=== PATIENT | female | born 1975 | race Asian ===

== ENCOUNTER 2024-10-06 08:38 | Inpatient (IN) | payer MEDICAID ==
[~2024-10-06] VITALS: Ht 149.9 cm; Wt 74.0 kg
--- NOTE | 2024-10-06 08:57 | ELECTROCARDIOGRAPH REPORT ---
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
[2024-10-06 09:32] LABS: MEAN PLATELET VOLUME 7.3 FL (7.4-10.4); RED CELL DISTRIBUTION WIDTH 14.0 % (11.5-14.5)
--- NOTE | 2024-10-06 09:34 | RADIOLOGY REPORT ---
EXAM: DI CHEST,SINGLE VIEW HISTORY: CP COMPARISON: None TECHNIQUE: Portable AP view of the chest was performed. FINDINGS: No pneumothorax, consolidative infiltrates, or pulmonary edema. The heart is borderline enlarged. IMPRESSION: No acute intrathoracic process.
[2024-10-06 09:53] LABS: CREATININE 0.52 MG/DL (0.40-0.90); PRO BRAIN NATRIURETIC PEPTIDE 152 PG/ML (0-125); TOTAL CARBON DIOXIDE 25.6 MMOL/L (24-32); eCRCL 89 ML/MIN; eGFR > 90 ML/MIN
--- NOTE | 2024-10-06 10:34 | Physician Documentation ---
History of Present Illness ~ Chief Complaint: Hypertension Stated Complaint: HYPOTENSIVE Time Seen by MD: 08:51 Mode of Arrival: EMS HPI This is a 49-year-old female with known history of hypotension, transferred to us for evaluation of hypotensive emergency/crisis. Evidently she lives in [place], she went to the outside facility because she developed chest tightness starting 3:00 p.m.. Chest tightness and pain started at rest, accompanied by shortness a breath radiating to her left upper extremity. No diaphoresis. At the time of my examination she is symptom free. She has a markedly elevated blood pressure at the outside facility of 257/134 periods of the slightly tachycardic. Per record review she received aspirin at the outside facility. Chest pressure was relieved with sublingual nitro. Apparently every time I her blood pressure was rising she would experience chest pain/pressure. Medication Reconciliation Allergies: Coded Allergies: No Known Allergies (Unverified , 10/06/24) Review of Systems ROS 10 point review of systems was performed and unless noted above in HPI is negative for acute process/complaint. Physical Exam Vital Signs: Temperature: 97.8, Source: Oral, Heart Rate: 55, Respiratory Rate: 11, BP: 166/73, Pulse Oximetry: 99, Weight: 74.000 Oxygen Flow Rate: 0 Physical Exam GENERAL: Awake, alert, oriented, GCS 15, no apparent distress, non-toxic appearing, answers questions, follows commands appropriately. HEENT: Atraumatic, normocephalic, pupils equal, extraocular muscles intact, sclerae anicteric, mucus membranes moist, oropharynx is clear, no stridor. NECK: supple, full active range of motion, trachea midline, no thyromegaly, no lymphadenopathy, no JVD. CARDIOVASCULAR: regular rate/rhythm, no murmurs/gallops/rubs, Pulses are 2+ in all extremities and symmetric. Capillary refill less than 2 seconds. PULMONARY: Nonlabored, good air movement ,no respiratory distress, speaking in full sentences, clear to auscultation bilaterally, no wheezing, no ronchi, no rales, no accessory muscle use. GASTROINTESTINAL: Soft, non-tender, non-distended, normal active bowel sounds, no organomegaly, no pulsatile masses, no CVA tenderness. NEUROLOGIC: Lucid with normal mental status. Normal facial symmetry. Moves all extremities symmetrically and with purpose. No truncal ataxia. Speech is fluid without evidence of dysarthria or aphasia, no focal deficits appreciated. MUSCULOSKELETAL: There is full range of motion of all extremities. There is no joint pain or joint swelling or joint erythema. There is no muscle pain or tenderness or swelling. EXTREMITIES: warm, well-perfused, no cyanosis, no clubbing, no edema, no acute deformities. Skin: warm, dry, no rashes or lesions, no jaundice, no petechiae orpurpura. No ecchymosis. PSYCHIATRIC: Normal affect, normal insight, normal concentration. Focused exam: [] Progress Results/Orders Results/Orders Orders - LORNA GARCIA DO Chest,Single View (10/06/24 08:41) Monitor (10/06/24 08:41) Saline Lock (10/06/24 08:41) Oxygen (10/06/24 08:41) Hs Troponin I W Calculations (10/06/24 10:41) Hs Troponin I W Calculations (10/06/24 11:41) Completed Orders - LORNA GARCIA DO Chest,Single View (10/06/24 08:41) Cbc/Diff (10/06/24 08:41) BMP (10/06/24 08:41) PBNP (10/06/24 08:41) Electrocardiogram (10/06/24 08:41) Hs Troponin I W Calculations (10/06/24 08:41) Vital Signs 10/06/24 10/06/24 08:43 10:03 Temp 97.8 Pulse 55 Resp 14 11 B/P (MAP) 166/73 Pulse Ox 99 O2 Flow Rate 0 Laboratory Tests Test 10/06/24 09:10 White Blood Count 5.3 Red Blood Count 4.56 Hemoglobin 12.4 Hematocrit 37.5 Mean Corpuscular Volume 82.2 Mean Corpuscular Hemoglobin 27.1 Mean Corpuscular Hemoglobin Concent 33.0 Red Cell Distribution Width 14.0 Platelet Count 194 Mean Platelet Volume 7.3 L Neutrophils (%) (Auto) 55.4 Lymphocytes (%) (Auto) 37.1 Monocytes (%) (Auto) 7.0 Eosinophils (%) (Auto) 0.2 Basophils (%) (Auto) 0.3 Neutrophils # (Auto) 2.9 Lymphocytes # (Auto) 2.0 Monocytes # (Auto) 0.4 Eosinophils # (Auto) 0.0 Basophils # (Auto) 0.0 CBC Comment Sodium Level 140 Potassium Level 3.6 Chloride Level 109 H Carbon Dioxide Level 25.6 Anion Gap 5 L Blood Urea Nitrogen 6 L Creatinine 0.52 Estimated GFR/1.73 m2 > 90 BUN/Creatinine Ratio 11.5 Glucose Level 96 Calcium Level 7.8 L Troponin I High Sensitivity 20 Pro-B-Type Natriuretic Peptide 152 H Albumin 3.2 L Chemistry Comments EKG/XRAY/CT/US/VASC/MRI EKG : Additional Comment EKG was obtained and interpreted by myself shows sinus bradycardia, rate of 54, normal CO interval, narrow QRS, prolonged QT at 5:10 a.m., normal axis, no STEMI. Nonspecific T-wave changes. Medical Decision Making Findings Facility Status: ED Holds, [facility] process The plan was discussed with the patient, who demonstrates clear understanding of the plan and is in agreement with the plan unless otherwise noted in the chart. All questions have been answered, all concerns were addressed unless otherwise documented. I was available throughout their ED stay for frequent reassessment and questions. Differential Diagnoses (considered and possible or likely): [Differential diagnosis considered includes hypertensive crisis, chest wall pain, pleurisy, pneumonia, pulmonary embolus, GERD, esophagitis, gastritis, anxiety, stress reaction, costochondritis, acute coronary syndrome, aortic dissection, pericarditis, myocarditis, or pneumothorax.] ??Differential Diagnoses (considered and unlikely, not requiring evaluation currently): [Aortic/great vessels dissection was considered but it is unlikely based on absence of ripping, tearing, migratory chest pain, absence of syncope or focal neurologic deficits, physical examination indicating equal and symmetric pulses.] MDM Data Please see [facility] for the following: Independent Historians and external Records Review. Historian: [Patient] Independent Historians: ?[Record review] Medication Management: [Reviewed medication list] Social History and determinants: [Reviewed] Please see the body of the note for the following: Any independent interpretations of ECG, imaging studies. All vitals signs/haemodynamics, ordered tests were independently reviewed and interpreted by myself. Nursing triage complaint and vitals reviewed, additional nursing notes were reviewed as available and I agree unless otherwise noted or documented in contradiction in the chart Vital Signs: Independently reviewed Labs: Independently interpreted Imaging: Independently interpreted Old Medical Records: Independently reviewed, see [facility] for relevant summary and information Pulse Oximetry: [97%] interpreted as [normal on room air] by me [[employer] Reporter: Bradycardic Rate, Regular rhythm, no ectopy, sinus bradycardia. reviewed and interpreted by me] Additionally notably showing: [Hemodynamics reviewed. The patient is not febrile, not tachycardic, no evidence of hypotension respiratory distress. CBC normal. Metabolic panel is essentially unremarkable. BNP slightly elevated. Troponin is normal. Chest x-ray shows no acute disease.] Tests considered but not ordered include: [Stress test and echo can be done on an inpatient basis] Social Determinants of Health Impact: Patient was evaluated in [facility] [place] access to healthcare due to below par ratio of patient to medical providers. [] Comorbid Conditions Impacting Present Evaluation and Care/Treatment: [Hypertension, untreated] Management Discussions with other Healthcare Providers: [Hospitalist regarding admission] Treatment and Disposition Medication Management (Given or considered): []. See EMR for details Consideration for Hospitalization/Escalation/Deescalation of Care: Admission for observation has been considered, for further workup of her chest pain that improves with the nitroglycerin and returns for hypotension ?ED Course:?[No clinical deterioration here in the ED] ?Shared decision making:?[] Code status:?FULL Please see the full Electronic Medical Record for full details of nursing documentation, medications list, other records of complete past medical history and conditions, vital signs, laboratory studies, and any radiologic study interpretations by radiologists. Portions of this note were completed using shoply dictation software and as a result there may exist minor errors in spelling. I have reviewed elements of past family and social history and agree as included in note. Departure Disposition: 09 ADMITTED INPATIENT Admitted to Inpatient Unit: to hospitalist Impression: Primary Impression: Hypertensive crisis Additional Impression: Acute chest pain Condition: Stable Referrals: NO PRIMARY CARE PROVIDER (PCP) Signature Scribe Signature: No scribe Attestation: This note accurately reflects clinical decisions, work performed by myself, DO RADHA Hamilton NICHOLAS M DO Oct 06, 2024 10:34
[2024-10-06] MEDS ORDERED: mag hydrox/Alum hydrox/simeth 30ml oral suspension PO PRN (11:00)
[2024-10-06] MEDS ORDERED: magnesium sulf-water 2g/50mL 50 ML IV PRN (11:00)
[2024-10-06] MEDS ORDERED: magnesium sulf-water 4G/100mL 100 ML IV PRN (11:00)
[2024-10-06] MEDS ORDERED: ondansetron/PF 4mg/2ml inj IV PRN (11:00)
[2024-10-06] MEDS ORDERED: magnesium hydroxide 30ml (MOM) UD suspension PO PRN (11:00)
[2024-10-06] MEDS ORDERED: potassium Cl 20 mEq SR tablet PO PRN ×2 (11:00)
[2024-10-06] MEDS ORDERED: potassium Cl 40MEQ/1/2NS 520ml 520 ML IV PRN (11:00)
[2024-10-06] MEDS ORDERED: magnesium Cl slow-release 64mg tablet PO PRN (11:00)
[2024-10-06] MEDS: normal saline 1000ml 1,000 ML IV SCH (11:59)
[2024-10-06 12:25] LABS: CREATININE 0.52 MG/DL (0.40-0.90); TOTAL CARBON DIOXIDE 24.2 MMOL/L (24-32); eCRCL 89 ML/MIN; eGFR > 90 ML/MIN
[2024-10-06 16:22] LABS: LEUKOCYTE ESTERASE ,URINE NEGATIVE (Neg); NITRITES, URINE NEGATIVE (Neg); OCCULT BLOOD,URINE NEGATIVE (Neg)
[2024-10-06 16:31] LABS: UA COLLECTION TYPE CLN CATCH MIDSTREAM
[2024-10-06 16:35] LABS: SQUAMOUS EPITHELIAL CELL,UR MODERATE /LPF (FEW)
[2024-10-06 16:36] LABS: MUCUS STRANDS MODERATE /LPF (Neg)
--- NOTE | 2024-10-06 17:09 | HISTORY AND PHYSICAL-Residence ---
History & Physical Providers to CC Resident Creating Document: JESUS AWAD, SHAGUFTA ~ History of Present Illness Reason for Admit\Complaint: Chest pain History of Present Illness This is a 49-year-old female with a known history of hypertension (noncompliant with medications) who presented with chest tightness radiating to the left arm, associated with numbness, fatigue, diaphoresis, and cold extremities. Symptoms began while she was hiking at [place] with friends and lasted approximately three hours. She describes the pain as sharp, substernal, worse at rest, and exacerbated by walking. A similar episode occurred earlier in the week while driving, characterized by arm discomfort and fatigue, which she did not initially associate with a cardiac issue. She initially presented to [facility], where initial workup including EKG (showing prolonged QT) and cardiac enzymes was performed which were negative, and she was subsequently transferred to our facility for further management of possible acute coronary syndrome. At the time of evaluation, she was chest pain-free. Her blood pressure was in the 180s systolic range, and she reports not taking her antihypertensive medications for the past two weeks due to not picking up the refill. 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 All negative except for pertinent positive HPI. Exam Vitals: Vital Signs Date Time Temp Pulse Resp B/P (MAP) Pulse Ox O2 Delivery O2 Flow Rate FiO2 10/06/24 14:46 97.8 56 14 130/68 (88) 0 10/06/24 08:43 99 General: Awake , alert, and oriented x4, resting comfortably in the bed, in no acute distress HEENT: Atraumatic, normocephalic, EOMI, anicteric sclera ; pink conjunctiva Neck: Trachea midline. Supple, full range of motion, no JVD Cardiac: Regular rhythm, regular rate with no murmurs all over the precordium. Respiratory: Equal breath sounds bilaterally, no tachypnea, no wheezing ,rub or rales, Chest wall is symmetric and without deformity. Gastrointestinal: Abdomen symmetric, non-distended, soft, non-tender, normal bowel sounds x4 quadrant, normoactive, no hepatosplenomegaly Musculoskeletal: No pedal edema, no cyanosis Neurological: Speech is clear, alert, and oriented x 4. No motor or sensory deficit, deep tendon reflexes normal, cerebellar intact. Cranial nerves II-XII intact. Skin: Warm and dry Diagnostic Data Last Recorded Lab Results: 10/06/24 0910 10/06/24 1147 Advance Care Planning Advanced Care plannin - 30 Minutes Additional Plan 1. Unstable Angina (UA) Troponin-negative, exertion and rest-related substernal chest discomfort with radiation and autonomic symptoms (sweating, fatigue). No ST-segment changes on EKG. Given multiple episodes in the past week and typical features of angina, this is best classified as unstable angina LEONARDO score = 2 ntermediate risk (813% risk of /OR/urgent revascularization in 14 days) Plan: Continue aspirin 81 mg PO daily Initiated high-intensity statin atorvastatin 40 mg daily Initiated metoprolol 25 mg p.o. daily Avoid QT-prolonging medications Serial troponins negative Lexiscan tomorrow in a.m. Echocardiogram ordered 2. Hypertension Uncontrolled (Medication Noncompliance) BP on arrival was in the 180s systolic. Patient has not taken prescribed medications for the past two weeks. Plan:Initiate or resume antihypertensive therapy, metoprolol 25 mg p.o. daily We will add amlodipine if blood pressure is not controlled Educated patient about the importance of medication adherence 3. Prolonged QTc on EKG QTc prolongation noted on EKG, no active arrhythmias. Plan: Potassium and magnesium normal Continue telemetry monitoring Code Status: Full code DVT Prophylaxis: Heparin S Nutrition: Heart healthy diet Prognosis: Guarded Disposition: Lexiscan tomorrow in a.m. Jesus Awad MD Internal Medicine Resident, PGY-2 Date of Service: Oct 06, 2024 Billing Provider: ISABEL MAGANA MD, GAURAV, RES Oct 06, 2024 17:09
[2024-10-06] MEDS ORDERED: aminophylline 500mg/20ml vial IV PRN (17:15)
[2024-10-06] MEDS ORDERED: metoprolol tartrate 1mg/ml inj IV PRN (17:15)
[2024-10-06] MEDS ORDERED: NO HOME MEDS (17:58)
[2024-10-06] MEDS: K and/or MAG REPLACEMENT MC SCH (20:00)
[2024-10-06] MEDS: heparin, porcine 5000 units/ml vial SQ SCH (20:06)
[2024-10-06] MEDS: docusate sod 100mg capsule PO SCH (20:06)
[2024-10-06 21:15] VITALS: BP 146/87; PULSE 52; RESP 14; TEMP 98.4; O2SAT 98
[2024-10-06 22:00] VITALS: BP 149/83; PULSE 53; RESP 16; TEMP 97.2; O2SAT 97
[2024-10-07] VITALS (15 sets, daily range): BP systolic 131–180; BP diastolic 71–95; PULSE 53–88; RESP 12–18; TEMP 97.2–98.1; O2SAT 96–100
[2024-10-07 06:39] LABS: CHOL/HDL RATIO 3.1 (0.00-4.99); CREATININE 0.66 MG/DL (0.40-0.90); LDL CHOLESTEROL 79 MG/DL (50-100); TOTAL CARBON DIOXIDE 26.2 MMOL/L (24-32); eCRCL 70 ML/MIN; eGFR > 90 ML/MIN
[2024-10-07] MEDS: metoprolol succinate 25mg (24-HOUR) SR. Tablet PO SCH (07:53)
[2024-10-07] MEDS: hydrALAZINE 20mg/ml inj. IV PRN (07:56)
[2024-10-07 08:11] LABS: MEAN PLATELET VOLUME 7.5 FL (7.4-10.4); RED CELL DISTRIBUTION WIDTH 13.8 % (11.5-14.5)
[2024-10-07] MEDS ORDERED: aminophylline 250mg/10ml inj. IV PRN (10:10)
[2024-10-07] MEDS: regadenoson 0.4mg/5ml syringe IV PRN (10:37)
--- NOTE | 2024-10-07 11:48 | RADIOLOGY REPORT ---
Procedure: NM NM CHAZ SCAN Exam Date: 10/07/2024 09:44 AM Reason for study/Clinical History: Chest pain Comparison Study: None Myocardial Perfusion Study with SPECT Technique: The patient received an intravenous injection of 8.1 mCi of technetium-99m sestamibi whil e at rest. After a short delay, SPECT tomographic images of the heart were obtained. The patient th en went to the stress lab where they received an intravenous infusion of 0.[address] andard protocol. 34.0 mCi of technetium-99m sestamibi was injected intravenously immediately after the start of the lexiscan infusion. Gated SPECT tomographic images of the heart were acquired and pr ocessed. Findings: No reversible perfusion defect. Fixed anterior wall defect. End diastolic volume: 101 mL End systolic volume: 34 mL The left ventricular ejection fraction is 66 %. (normal greater than 50%) Impression: No reversible defect. Fixed anterior wall defect. The left ventricular ejection fraction is 66 %.
[2024-10-07] MEDS ORDERED: METO-395 PO (16:37)
[2024-10-07] MEDS ORDERED: ATOR10TA PO (16:38)
[2024-10-07] MEDS ORDERED: AMLO5TAB16 PO (16:38)
--- NOTE | 2024-10-07 18:25 | DISCHARGE SUMMARY-Residence ---
Discharge Summary Providers to Resident Creating Document: MAYTE CALVERT, RES ~ Discharge Summary Admission Diagnosis: Angina Hospital Course DATE OF ADMISSION: 10/06/2024 DATE OF DISCHARGE: 10/07/2024 Discharge Diagnosis\Comment: Unstable angina Uncontrolled hypertension(medication noncompliance) Hypertensive crisis- ruled out Operations\Procedures: None Consultants: none Complications: none Condition on DC: Stable Discharge Summary: History of present illness according to admitting physicial: This is a 49-year-old female with a known history of hypertension (noncompliant with medications) who presented with chest tightness radiating to the left arm, associated with numbness, fatigue, diaphoresis, and cold extremities. Symptoms began while she was hiking at [employer] with friends and lasted approximately three hours. She describes the pain as sharp, substernal, worse at rest, and exacerbated by walking. A similar episode occurred earlier in the week while driving, characterized by arm discomfort and fatigue, which she did not initial ly associate with a cardiac issue. She initially presented to [facility], where initial workup including EKG (showing prolonged QT) and cardiac enzymes was performed which were negative, and she was subsequently transferred to our facility for further management of possible acute coronary syndrome.At the time of evaluation, she was chest pain- free. Her blood pressure was in the 180s systolic range, and she reports not taking her antihypertensive medications for the past two weeks due to not picking up the refill. Hospital course: Patient presented with symptoms of substernal chest discomfort with radiation and autonomic symptoms, her troponin was negative no ST segment changes on EKG patient had multiple episodes in the past one week. She underwent a Lexiscan today which showed: no reversible defect.Fixed anterior wall defect.The left ventricular ejection fraction is 66 %. Patient was initiated with a high- intensity statin atorvastatin 40 mg daily , amlodipine 5 mg daily and metoprolol 25 mg daily. With respect to hypertension patient continued to have hypertension, which was well controlled with metoprolol 25 mg. Patient was educated about the importance of medication adherence and she agreed to it Significant imaging: Lexiscan reported: Impression: No reversible defect. Fixed anterior wall defect. The left ventricular ejection fraction is 66 %. Laboratory Tests Test 10/06/24 09:10 10/06/24 10:26 10/06/24 11:47 10/06/24 15:38 White Blood Count 5.3 X10'3 Red Blood Count 4.56 X10'6 Hemoglobin 12.4 g/dl Hematocrit 37.5 % Mean Corpuscular Volume 82.2 FL Mean Corpuscular Hemoglobin 27.1 PG Mean Corpuscular Hemoglobin Concent 33.0 g/dL Red Cell Distribution Width 14.0 % Platelet Count 194 X10'3 Mean Platelet Volume 7.3 FL Neutrophils (%) (Auto) 55.4 % Lymphocytes (%) (Auto) 37.1 % Monocytes (%) (Auto) 7.0 % Eosinophils (%) (Auto) 0.2 % Basophils (%) (Auto) 0.3 % Neutrophils # (Auto) 2.9 X10'3 Lymphocytes # (Auto) 2.0 X10'3 Monocytes # (Auto) 0.4 X10'3 Eosinophils # (Auto) 0.0 X10'3 Basophils # (Auto) 0.0 X10'3 CBC Comment Sodium Level 140 MMOL/L 142 MMOL/L Potassium Level 3.6 MMOL/L 3.6 MMOL/L Chloride Level 109 MMOL/L 110 MMOL/L Carbon Dioxide Level 25.6 MMOL/L 24.2 MMOL/L Anion Gap 5 8 Blood Urea Nitrogen 6 MG/DL 5 MG/DL Creatinine 0.52 MG/DL 0.52 MG/DL Estimated GFR/1.73 m2 > 90 ML/MIN > 90 ML/MIN BUN/Creatinine Ratio 11.5 9.6 Glucose Level 96 MG/DL 89 MG/DL Calcium Level 7.8 MG/DL 8.0 MG/DL Troponin I High Sensitivity 20 ng/L 19 ng/L 22 ng/L Pro-B-Type Natriuretic Peptide 152 PG/ML Albumin 3.2 G/DL 3.4 G/DL Chemistry Comments Troponin I High Sens Percent Delta 5 % 15 % Troponin I Hi Sens Absolute Change -1 ng/L 3 ng/L Hemoglobin A1c 5.6 % Magnesium Level 2.1 MG/DL Total Bilirubin 0.4 MG/DL Aspartate Amino Transf (AST/SGOT) 10 U/L Alanine Aminotransferase (ALT/SGPT) 19 U/L Alkaline Phosphatase 66 IU/L Total Protein 6.5 G/DL Globulin 3.1 G/DL Albumin/Globulin Ratio 1.1 Urine Specimen Description Cln catch midstream Urine Color Straw Urine Clarity Slightly cloudy Urine pH 6.0 Urine Specific [place] 1.015 Urine Protein Negative mg/dl Urine Glucose (UA) Negative mg/dl Urine Ketones Negative mg/dl Urine Occult Blood Negative Urine Nitrite Negative Urine Bilirubin Negative Urine Urobilinogen 0.2 E.U/dL Urine Leukocyte Esterase Negative Urine RBC 0-2 /HPF Urine WBC 5-10 /HPF Urine Squamous Epithelial Cells Moderate /LPF Urine Bacteria 1+ /HPF Urine Mucus Moderate /LPF Urine Culture Indicated Indicated Volume Urine Centrifuged 10 ml Urine Comment Test 10/07/24 05:55 10/07/24 07:38 CBC Comment Sodium Level 141 MMOL/L Potassium Level 3.6 MMOL/L Chloride Level 108 MMOL/L Carbon Dioxide Level 26.2 MMOL/L Anion Gap 7 Blood Urea Nitrogen 8 MG/DL Creatinine 0.66 MG/DL Estimated GFR/1.73 m2 > 90 ML/MIN BUN/Creatinine Ratio 12.1 Glucose Level 88 MG/DL Calcium Level 8.4 MG/DL Magnesium Level 1.9 MG/DL Total Bilirubin 0.4 MG/DL Aspartate Amino Transf (AST/SGOT) 12 U/L Alanine Aminotransferase (ALT/SGPT) 16 U/L Alkaline Phosphatase 65 IU/L Total Protein 6.6 G/DL Albumin 3.5 G/DL Globulin 3.1 G/DL Albumin/Globulin Ratio 1.1 Triglycerides Level 97 MG/DL Cholesterol Level 146 MG/DL LDL Cholesterol 79 MG/DL HDL Cholesterol 47 MG/DL Cholesterol/HDL Ratio 3.1 Chemistry Comments White Blood Count 5.1 X10'3 Red Blood Count 4.56 X10'6 Hemoglobin 12.4 g/dl Hematocrit 37.3 % Mean Corpuscular Volume 81.9 FL Mean Corpuscular Hemoglobin 27.2 PG Mean Corpuscular Hemoglobin Concent 33.2 g/dL Red Cell Distribution Width 13.8 % Platelet Count 180 X10'3 Mean Platelet Volume 7.5 FL Neutrophils (%) (Auto) 56.3 % Lymphocytes (%) (Auto) 35.5 % Monocytes (%) (Auto) 7.2 % Eosinophils (%) (Auto) 0.7 % Basophils (%) (Auto) 0.3 % Neutrophils # (Auto) 2.9 X10'3 Lymphocytes # (Auto) 1.8 X10'3 Monocytes # (Auto) 0.4 X10'3 Eosinophils # (Auto) 0.0 X10'3 Basophils # (Auto) 0.0 X10'3 Vital Signs Date Time Temp Pulse Resp B/P (MAP) Pulse Ox O2 Delivery O2 Flow Rate FiO2 10/07/24 17:11 96 Room Air* 0 21 10/07/24 15:00 97.2 54 12 131/75 (93) Discharge medication: Amlodipine Besylate 5 Mg Tablet Atorvastatin Calcium (Lipitor) 10 Mg Tablet Metoprolol Succinate 25 Mg Tab.sr.24h Discharge advise Please follow up with the PCP in one week 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 Please follow medications as advised and strict adherence to the medications. Follow heart healthy diet. Please call 911 case of any emergency like chest pain,palpitations or discomfort *Problems/Diagnosis: (1) Acute chest pain Status: Acute Total Time Spent on D/C: > 30 Minutes Date of Service: Oct 07, 2024 Billing Provider: ISABEL MAGANA MD,MAYTE, RES Oct 07, 2024 18:16
--- NOTE | 2024-10-08 12:08 | CARDIOLOGY REPORT ---
APPROVED REPORT EXAM: Comprehensive 2D, Doppler, and color-flow Echocardiogram. Patient Location: [address] Blood Pressure: 133/77 mmHg Heart Rate: 55 bpm Rhythm: Sinus Bradycardia Indications Angina/Chest Pain Hx of Hypertension Negative Troponins No ST changes Control Systems Developer: None Patient is from out of the area Previous echo: None 2D Dimensions RVDd 3.3 cm LA Diam4.4 cm LVOT Diameter 2.09 (1.8-2.4cm) CO 4.6 L/min M-Mode Dimensions RVDd 2.49 (2.1-3.2cm) IVSd 1.56 (0.7-1.1cm) LVDd 5.49 (4.0-5.6cm) Aortic Root 3.62 (2.2-3.7cm) PWd 1.23 (0.7-1.1cm) Aortic Cusp Exc 2.22 (1.5-2.0cm) IVSs 1.46 cm MV EPSS 0.9 (<0.5cm) LVDs 3.62 (2.0-3.8cm) FS (%) 34 % PWs 1.34 cm ESV(Teich) 51.1 ml LVEF(%) 63 (>50%) Aortic Valve AoV Peak Seferino. 180.6 cm/s AoV VTI 39.8 cm AO Peak GR. 13.0 mmHg AO Mean GR. 6 mmHg LVOT VTI 27.37 cm LVOT Peak Seferino. 113.3 cm/s JESS(VTI)/BSA 2.37 cm2/m2 JESS (VTI) 2.37 cm2 AI P 1/2 Time 560 ms Mitral Valve MV E Velocity 62.4 cm/s MV Peak Gr. 5 mmHg MV DECEL TIME 332 ms MV A Velocity 79.5 cm/s MV PHT 68 ms E/A Ratio 0.8 MVA (PHT) 3.24 cm2 MV [id number] cm/s TDI Lateral E' P. V7.80 cm/s E/Lateral E' 8.0 Tricuspid Valve TR P. Velocity 186 cm/s RAP ESTIMATE 10 mmHg TR Peak Gr. 14 mmHg RVSP 24 mmHg Pulmonary Vein S1 Velocity 58.1 cm/s D2 Velocity 46.0 cm/s PVa [id number] cm/s PVa [id number] msec LEFT VENTRICLE Normal LV size and function. Mild concentric hypertrophy. Overall LVEF is 60-65%. RIGHT VENTRICLE Right ventricle is mildly dilated with normal function. Estimated PA systolic pressure is 24 mmHg. ATRIA Left atrium is mildly dilated. AORTIC VALVE Probable trileaflet vs ? Bicuspid AV appears sclerotic without stenosis. Mild to moderate insufficien cy. MITRAL VALVE Mild MV annular thickening without stenosis. Mild regurgitation. TRICUSPID VALVE TV appears structurally normal with trace regurgitation. GREAT VESSELS The aortic root is normal in size. IVC is normal in size and collapses greater than 50% with inspirat ion. PERICARDIUM Normal pericardium. No pericardial effusion seen. Other Information Study Quality: Adequate Conclusion Overall LVEF is 60-65%. Normal LV size and function. Mild concentric hypertrophy. Right ventricle is mildly dilated with normal function. Estimated PA systolic pressure is 24 mmHg. Probable trileaflet vs ? Bicuspid AV appears sclerotic without stenosis. Mild to moderate insuffi ciency. Mild MV annular thickening without stenosis. Mild regurgitation. TV appears structurally normal with trace regurgitation. Normal pericardium. No pericardial effusion seen.
[2024-10-10 05:17] LABS: HBSAG SCREEN Negative (Negative); HEP B CORE AB, IGM Negative (Negative); HEP B CORE AB, TOT Positive (Negative)
== END 2024-10-07 17:45 | disposition home or self-care (01) | DRG 198 ==
LOC: ER 08:39 → ED HOLD 11:01 → PCU 3S 21:15
PROVIDERS: ADMIT Family Medicine; ATTEND Family Medicine
PROC: 4A02XM4 Measurement of Cardiac Total Activity, External Approach (ICD-10-PCS; principal; 2024-10-07)
PROC: 3E033HZ Introduction of Radioactive Substance into Peripheral Vein, Percutaneous Approach (ICD-10-PCS; 2024-10-07)
DX: I20.0 Unstable angina (principal); F10.90 Alcohol use, unspecified, uncomplicated; I10 Essential (primary) hypertension; Z90.49 Acquired absence of other specified parts of digestive tract; Z91.148 Patient's other noncompliance with medication regimen for other reason
CPT/HCPCS: 36415; 71045; 78452; 80048; 80053; 80061; 81001; 83036; 83735; 83880; 84484; 85025; 86704; 86705; 87081; 87088; 87340; 93005; 93017; 93306; 99285; A9500; G0378; J0360; J1644; J2785; J7030; J7120